=== PATIENT | female | born 1970 | race Caucasian/White ===

== ENCOUNTER 2018-08-29 04:40 | Observation (INO) ==
[2018-08-29] MEDS ORDERED: Sod Chloride 0.9% Inj 1,000 ML IV.SIG ONE (05:11)
[2018-08-29] MEDS ORDERED: HYDROmorphone PF Inj 2 MG/ML Vial IV.PUSH ONE (05:11)
[2018-08-29 05:33] LABS: Baso % (Auto) 0.2 % (0.0-2.0); Eos # (Auto) 0.1 th/mm3 (0.0-0.4); Eos % (Auto) 0.9 % (0.0-4.0); Hematocrit 35.9 % (35.0-46.0); Hemoglobin 12.5 gm/dL (11.6-15.3); Lymph # (Auto) 1.5 th/mm3 (1.0-4.8); Lymph % (Auto) 9.4 % (9.0-44.0); Mean Corpuscular HGB Conc 34.7 % (32.0-36.0); Mean Corpuscular Hemoglobin 32.1 pg (27.0-34.0); Mean Corpuscular Volume 92.4 fL (80.0-100.0); Mean Platelet Volume 7.4 fL (7.0-11.0); Mono # (Auto) 1.3 th/mm3 (0.0-0.9); Mono % (Auto) 8.4 % (0.0-8.0); Neut # (Auto) 12.5 th/mm3 (1.8-7.7); Neut % (Auto) 81.1 % (16.0-70.0); Platelet Count 280 th/mm3 (150-450); Red Blood Count 3.89 mil/mm3 (4.00-5.30); Red Cell Distribution Width 12.8 % (11.6-17.2); White Blood Count 15.4 th/mm3 (4.0-11.0)
[2018-08-29 05:43] LABS: Alanine Aminotransferase 17 U/L (10-53); Albumin 3.1 g/dL (3.4-5.0); Anion Gap 6 meq/L (5-15); Aspartate Aminotransferase 15 U/L (15-37); Blood Urea Nitrogen 11 mg/dL (7-18); Calcium 8.3 mg/dL (8.5-10.1); Carbon Dioxide 26.7 meq/L (21.0-32.0); Chloride 107 meq/L (98-107); Glomerular Filtration Rate 68 mL/min (>89); Glucose,Random 146 mg/dL (74-106); Lipase 131 U/L (73-393); Magnesium 2.2 mg/dL (1.5-2.5); Potassium 3.7 meq/L (3.5-5.1); Sodium 140 meq/L (136-145)
[2018-08-29 05:45] LABS: Alkaline Phosphatase 56 U/L (45-117); Total Protein 7.3 g/dL (6.4-8.2)
--- NOTE | 2018-08-29 06:01 | ED ---
HPI General Chief Complaint: Abdominal Pain Stated Complaint: Abd Pain Time Seen by Provider: 08/29/18 04:58 Source: patient Mode of arrival: ambulatory Limitations: no limitations History of Present Illness HPI narrative: 48 yo F c/o RUQ pain for about 5 days much worse over the past two days. Vomiting occurred overnight. No fever chills. Pt unable to sleep due to pain. Pt seen yesterday at [facility] with essentially unremarkable work up including CT ab/pel and CBC/CMP. Pain constant. + Radiation to back. Timing constant. Related Data Home Medications Medication Instructions Recorded Confirmed venlafaxine [Effexor XR] 75 mg PO DAILY 08/28/18 08/29/18 zolpidem [Ambien] 10 mg PO HS 08/28/18 08/29/18 Allergies Allergy/AdvReac Type Severity Reaction Status Date / Time No Known Allergies Allergy Verified 08/29/18 04:45 Review of Systems ROS: all other systems reviewed are negative [facility] Medical History Medical History Anxiety (Acute) Fibromyalgia (Acute) Surgical History Surgical History H/O section (Acute) Social History Social History Substance History: No History of Abuse Second Hand Smoke Exposure: No Smoking Status: Never smoker How Often Do You Have a Drink Containing Alcohol: Monthly or less Recent Travel in [facility] within the Last 8 Weeks: No Recent Out of Country Travel within the Last 8 Weeks: No Immunization History Tetanus Immunization: Unsure Exam Narrative Exam Narrative: GENERAL: 48 yo F, WNWD, mild distress 2/2 pain SKIN: Focused skin assessment warm/dry. HEAD: Atraumatic. Normocephalic. EYES: Pupils equal and round. No scleral icterus. No injection or drainage. ENT: No nasal bleeding or discharge. Mucous membranes pink and moist. NECK: Trachea midline. No JVD. CARDIOVASCULAR: Regular rate and rhythm. No murmur appreciated. RESPIRATORY: No accessory muscle use. Clear to auscultation. Breath sounds equal bilaterally. GASTROINTESTINAL: TTP RUQ. Diffuse guarding. MUSCULOSKELETAL: No obvious deformities. No clubbing. No cyanosis. No edema. NEUROLOGICAL: Awake and alert. No obvious cranial nerve deficits. Motor grossly within normal limits. Normal speech. PSYCHIATRIC: Appropriate mood and affect; insight and judgment normal. Course Initial Documented Vital Signs Temperature 97.9 F 08/29/18 04:43 Pulse Rate 80 08/29/18 04:43 Respiratory Rate 17 08/29/18 04:43 Blood Pressure 116/55 L 08/29/18 04:43 Pulse Oximetry 99 08/29/18 04:43 Last Documented Vital Signs Temperature 97.9 F 08/29/18 04:43 Pulse Rate 80 08/29/18 04:43 Respiratory Rate 16 08/29/18 06:13 Blood Pressure 116/55 L 08/29/18 04:43 Pulse Oximetry 99 08/29/18 05:30 Medical Decision Making MDM Narrative Medical decision making narrative: WBC 15.4 Hb 12.5 PLT 280 LFT essentially normal US with GBW thickening and GB distension cipro/flagyl started IVF/NPO Call to [facility] hospitalist at 626AM. d/w Dr Mejia at 630AM, admission to Dr Retana Medical Screen Exam Complete: Yes Emergency Medical Condition: Yes Lab Data Result diagrams: 08/29/18 05:14 08/29/18 05:14 Lab Results 08/29/18 08/29/18 Range/Units 05:14 05:14 WBC 15.4 H (4.0-11.0) th/mm3 RBC 3.89 L (4.00-5.30) mil/mm3 Hgb 12.5 (11.6-15.3) gm/dL Hct 35.9 (35.0-46.0) % MCV 92.4 (80.0-100.0) fL MCH 32.1 (27.0-34.0) pg MCHC 34.7 (32.0-36.0) % RDW 12.8 (11.6-17.2) % Plt Count 280 (150-450) th/mm3 MPV 7.4 (7.0-11.0) fL Neut % (Auto) 81.1 H (16.0-70.0) % Lymph % (Auto) 9.4 (9.0-44.0) % Rolette % (Auto) 8.4 H (0.0-8.0) % Eos % (Auto) 0.9 (0.0-4.0) % Baso % (Auto) 0.2 (0.0-2.0) % Neut # (Auto) 12.5 H (1.8-7.7) th/mm3 Lymph # (Auto) 1.5 (1.0-4.8) th/mm3 Rolette # (Auto) 1.3 H (0.0-0.9) th/mm3 Eos # (Auto) 0.1 (0.0-0.4) th/mm3 Baso # (Auto) 0.0 (0.0-0.2) th/mm3 WBC Differential . Differential Comment Auto diff final Sodium 140 (136-145) meq/L Potassium 3.7 (3.5-5.1) meq/L Chloride 107 (98-107) meq/L Carbon Dioxide 26.7 (21.0-32.0) meq/L Anion Gap 6 (5-15) meq/L BUN 11 (7-18) mg/dL Creatinine 0.89 (0.50-1.00) mg/dL Estimated GFR 68 L (>89) mL/min Random Glucose 146 H (74-106) mg/dL Calcium 8.3 L (8.5-10.1) mg/dL Magnesium 2.2 (1.5-2.5) mg/dL Total Bilirubin 0.6 (0.2-1.0) mg/dL AST 15 (15-37) U/L ALT 17 (10-53) U/L Alkaline Phosphatase 56 (45-117) U/L Total Protein 7.3 (6.4-8.2) g/dL Albumin 3.1 L (3.4-5.0) g/dL Lipase 131 (73-393) U/L Imaging Data Radiologist's impression: Gallbladder Ultrasound 08/29/18 05:06 CONCLUSION: 1. Small hemangioma right lobe liver. 2. Distended gallbladder with some gallbladder wall thickening but no sonographic Crane's sign Discharge Plan Discharge Disposition Patient Disposition: ED Admit(ED Internal Use Only) Discharge Order Discharge Orders: ED Use Only Admit Order (Routine); Ordered 08/29/18 Ordered By: Remy Clarke Physicians Team ED Provider: Remy Clarke Primary Care Provider: Nell Romero Attending Provider: Anjel Muñoz Other Providers: Nemesio Escamilla Status ED Status: Admitted Patient
--- NOTE | 2018-08-29 06:12 | US ---
EXAM DATE: 08/29/2018 5:49 AM EST AGE/SEX: 48 years / Female INDICATIONS: RUQ pain. CLINICAL DATA: This is the patient's initial encounter. Patient reports that signs and symptoms have been present for 1 day and indicates a pain score of 7/10. MEDICAL/SURGICAL HISTORY: . Anxiety. Fibromyalgia. section. COMPARISON: [facility], CT ABDOMEN & PELVIS W CONTRAST, 08/28/2018. . MEASUREMENTS: Liver:__ 16.3 cm. Common Bile Duct:__ Nonvisualized. FINDINGS: Liver: Well-circumscribed echogenic area in the right lobe of liver I believe a hemangioma measuring 7 x 8 x 8 mm across. Portal Vein: Hepatopedal flow seen in portal vein. Common Duct: No intraluminal mass or stone visualized. Gallbladder: The gallbladder wall is thickened between 3 to 4 mm the patient did not have a positive sonographic Crane's sign Pancreas: The visualized portions are within normal limits Right Kidney: Increased echogenicity. No mass or hydronephrosis. Other: None. CONCLUSION: 1. Small hemangioma right lobe liver. 2. Distended gallbladder with some gallbladder wall thickening but no sonographic Crane's sign Electronically signed by: Jani Mott MD Board Certified Radiologist 08/29/2018 6:11 AM EST
[2018-08-29] MEDS ORDERED: Ciprofloxacin 400 MG/200 ML 400 MG/200 ML PIGGYBACK IV.SIG ONE (06:31)
[2018-08-29] MEDS: Morphine Inj 4 MG/ML Vial IV.PUSH PRN ×2 (08:43→11:57)
--- NOTE | 2018-08-29 08:47 | MR ---
EXAM DATE: 08/29/2018 7:58 AM EST AGE/SEX: 48 years / Female INDICATIONS: Abdominal pain. RUQ pain. CLINICAL DATA: This is the patient's initial encounter. Patient reports that signs and symptoms have been present for 1 day and indicates a pain score of 2/10. MEDICAL/SURGICAL HISTORY: None. section. COMPARISON: [facility], CT ABDOMEN & PELVIS W CONTRAST, 08/28/2018. [facility], CT ABDOMEN AND PELVIS W AND W /O CONTRAST, 02/09/2018. . TECHNIQUE: Multiplanar, multisequence images of the abdomen were obtained without contrast including dedicated cholangiographic images. FINDINGS: Liver: 1.3 cm mass seen at the superior aspect of the right lobe of the liver. This is nonspecific o n this MRCP however, has been present on the last 2 CT examinations. On the prior contrast enhanced C T there appear to be some peripheral rim enhancement suggesting it likely represents a small hemangio ma. Intrahepatic Bile Ducts: There is no intrahepatic biliary ductal dilatation. Common Bile Duct: The common bile duct is mildly distended at 7 mm. There appears to be a possible s mall 3 to 4 mm filling defect at the distal common bile duct at the level of the ampulla. A small sto ne can be suspected. Gallbladder: Gallbladder is distended. Gallstones are not seen. The gallbladder wall is thickened. Pancreas: The pancreas appears normal in signal with no focal parenchymal abnormalities. The pancrea tic duct is normal in caliber with no filling defects, or obstructing lesions identified. CONCLUSION: 1. Suspected small filling defect at the distal common bile duct recent possibility of a distal ston e with mild dilatation the common bile duct and distention of the gallbladder. 2. Nonspecific 1.3 cm hypodensity in the superior aspect of the right lobe of the liver. Based on it s appearance on the prior CT examinations is thought the likely represent a hemangioma. Electronically signed by: Tristen Higginbotham MD Board Certified Radiologist 08/29/2018 8:46 AM EST
--- NOTE | 2018-08-29 10:54 | P.CONGI ---
History of Present Illness Chief complaint: poss Cholecystitis History of Present Illness: This is 48 yo F presented with RUQ pain started since Fri. progressively got worse. Had one episode of Vomiting. No fever chills. Pt seen yesterday at [facility] with essentially unremarkable work up including CT ab/pel and CBC/CMP. Pain persisted so she presented to the ED again. Cholangiopancreatography MRI showed Suspected small filling defect at the distal common bile duct recent possibility of a distal stone with mild dilatation the common bile duct and distention of the gallbladder. Nonspecific 1.3 cm hypodensity in the superior aspect of the right lobe of the liver. Based on its appearance on the prior CT examinations is thought the likely represent a hemangioma. Gallbladder Ultrasound 08/29/18 Small hemangioma right lobe liver. Distended gallbladder with some gallbladder wall thickening but no sonographic Crane's sign. LFTs wnl , lipase wnl, elevated WBC. Denies previous hx of this. <Radha Schulz - Last Filed: 08/29/18 11:51> Review of Systems All other systems reviewed negative except as stated in HPI <Radha Schulz - Last Filed: 08/29/18 11:51> PMFSH - History History Provided By: Patient - Medical History Medical History: Medical History (Last Reviewed 08/29/18 @ 04:44 by Cecil De Souza) Anxiety Fibromyalgia - Surgical History Surgical History: Surgical History (Last Updated 08/29/18 @ 04:49 by Cristina Couch RN) H/O section - Tobacco History Second Hand Smoke Exposure: No Smoking Status: Never smoker - Alcohol History How Often Do You Have a Drink Containing Alcohol: 2 to 3 times a week - Substance Use History Substance History: No History of Abuse - Travel History Recent Travel in the [place] Within the Last 8 Weeks: No Recent Travel Out of the Country Within the Last 8 Weeks: No - Immunization History Tetanus Immunization: Unsure <Radha Schulz - Last Filed: 08/29/18 11:51> - Medical History Medical History: Medical History (Last Reviewed 08/29/18 @ 04:44 by Cecil De Souza) Anxiety Fibromyalgia - Surgical History Surgical History: Surgical History (Last Updated 08/29/18 @ 04:49 by Cristina Couch RN) H/O section <Nemesio Escamilla - Last Filed: 08/29/18 16:08> Medications and Allergies Active Medications: Active Medications Levofloxacin/Dextrose (Levaquin 750 Mg Premix Inj) 150 mls @ 100 mls/hr IV.SIG Q36H JOAN Metronidazole/Sodium Chloride (Flagyl 500 Mg Inj) 100 mls @ 100 mls/hr IV.SIG Q8H JOAN Morphine Sulfate (Morphine Inj) 4 mg IV.PUSH Q3H PRN PRN Reason: pain level 3-10 Last Admin: 08/29/18 08:43 Dose: 4 mg Ondansetron HCl (Zofran Inj) 4 mg IV.PUSH Q6H PRN PRN Reason: nausea, vomiting Sodium Chloride (Ns Flush) 2 ml IV.FLUSH PRN PRN PRN Reason: FLUSH AFTER USING IV ACCESS Last Admin: 08/29/18 05:30 Dose: 2 ml <Radha Schulz - Last Filed: 08/29/18 11:51> Active Medications: Active Medications Dextrose (D50w Vial) 50 ml IV.PUSH UNSCH PRN PRN Reason: PER HYPOGLYCEMIA PROTOCOL Glucagon (Glucagon Inj) 1 mg OTHER PRN PRN PRN Reason: for Hypoglycemia Protocol Metronidazole/Sodium Chloride (Flagyl 500 Mg Inj) 100 mls @ 100 mls/hr IV.SIG Q8H JOAN Last Admin: 08/29/18 14:19 Dose: 100 mls/hr Levofloxacin/Dextrose (Levaquin 500 Mg Premix Inj) 500 mg in 100 mls @ 100 mls/ hr IV.SIG Q24H [facility] Last Admin: 08/29/18 14:19 Dose: 100 mls/hr Potassium Chloride/Sodium Chloride (Ns + Kcl 20 Meq Inj) 1,000 mls @ 75 mls/hr IV.CONT .[id number] [facility] Last Admin: 08/29/18 14:19 Dose: 75 mls/hr Lorazepam (Ativan Inj) 1 mg IV.PUSH Q6H PRN PRN Reason: ANXIETY Morphine Sulfate (Morphine Inj) 4 mg IV.PUSH Q3H PRN PRN Reason: pain level 3-10 Last Admin: 08/29/18 11:57 Dose: 4 mg Ondansetron HCl (Zofran Inj) 4 mg IV.PUSH Q6H PRN PRN Reason: nausea, vomiting Sodium Chloride (Ns Flush) 2 ml IV.FLUSH PRN PRN PRN Reason: FLUSH AFTER USING IV ACCESS Last Admin: 08/29/18 05:30 Dose: 2 ml Venlafaxine HCl (Effexor Xr) 75 mg PO DAILY JOAN Zolpidem Tartrate (Ambien) 5 mg PO HS PRN PRN Reason: INSOMNIA/MAY REPEAT X1 DOSE <Nemesio Escamilla - Last Filed: 08/29/18 16:08> Allergies Allergy/AdvReac Type Severity Reaction Status Date / Time No Known Allergies Allergy Verified 08/29/18 04:45 Home Medications Medication Instructions Recorded Confirmed Type venlafaxine [Effexor XR] 75 mg PO DAILY 08/28/18 08/29/18 History zolpidem [Ambien] 10 mg PO HS 08/28/18 08/29/18 History Exam Vital signs: Vital Signs 08/29/18 04:43 08/29/18 05:30 08/29/18 06:13 Temperature 97.9 F Pulse Rate 80 Respiratory Rate 17 16 Blood Pressure 116/55 L Pulse Oximetry 99 99 08/29/18 07:14 08/29/18 08:00 Temperature 98.4 F Pulse Rate 86 82 Respiratory Rate 14 18 Blood Pressure 108/58 L 119/58 L Pulse Oximetry 98 100 Intake & Output 08/28/18 08/29/18 08/29/18 18:59 06:59 18:59 Intake Total 1000 / 1000 100 / 100 Balance 1000 / 1000 100 / 100 Weight 51.71 kg 51.7 kg Intake: IV 1000 / 1000 100 / 100 NS Inj 1,000 ML @ Wide Open IV. 1000 / 1000 SIG BOLUS ONE Rx#:[id number] Flagyl 500 MG Inj 100 ML @ 100 100 / 100 mls/hr IV.SIG ONCE ONE Rx#: [id number] Other: Weight On Admission 51.7 kg - Constitutional no acute distress - Routine HEENT Exam Head: Present: normocephalic - Routine Respiratory Exam Present: CTA bilaterally - Routine Cardiovascular Exam Present: RRR - Routine Abdominal Exam Present: soft, normoactive bowel sounds, tenderness (RUQ ) - Routine Extremities Exam Absent: edema - Routine Skin Exam Present: intact, dry. Absent: jaundice - Routine Neurological Exam Present: alert, oriented X3 <Radha Schulz - Last Filed: 08/29/18 11:51> Vital signs: Vital Signs 08/29/18 04:43 08/29/18 05:30 08/29/18 06:13 Temperature 97.9 F Pulse Rate 80 Respiratory Rate 17 16 Blood Pressure 116/55 L Pulse Oximetry 99 99 08/29/18 07:14 08/29/18 08:00 08/29/18 12:00 Temperature 98.4 F 99.1 F Pulse Rate 86 82 90 Respiratory Rate 14 18 18 Blood Pressure 108/58 L 119/58 L 126/71 Pulse Oximetry 98 100 100 Intake & Output 08/28/18 08/29/18 08/29/18 18:59 06:59 18:59 Intake Total 1000 / 1000 100 / 100 Balance 1000 / 1000 100 / 100 Weight 51.71 kg 51.7 kg Intake: IV 1000 / 1000 100 / 100 NS Inj 1,000 ML @ Wide Open IV. 1000 / 1000 SIG BOLUS ONE Rx#:[id number] Flagyl 500 MG Inj 100 ML @ 100 100 / 100 mls/hr IV.SIG ONCE ONE Rx#: [id number] Other: Weight On Admission 51.7 kg <Nemesio Escamilla - Last Filed: 08/29/18 16:08> Results - Labs CBC & Chem 7: 08/29/18 05:14 08/29/18 05:14 Labs: Laboratory Results - last 24 hr 08/29/18 08/29/18 08/29/18 05:14 05:14 05:14 WBC 15.4 H RBC 3.89 L Hgb 12.5 Hct 35.9 MCV 92.4 MCH 32.1 MCHC 34.7 RDW 12.8 Plt Count 280 MPV 7.4 Neut % (Auto) 81.1 H Lymph % (Auto) 9.4 Maries % (Auto) 8.4 H Eos % (Auto) 0.9 Baso % (Auto) 0.2 Neut # (Auto) 12.5 H Lymph # (Auto) 1.5 Maries # (Auto) 1.3 H Eos # (Auto) 0.1 Baso # (Auto) 0.0 WBC Differential . Differential Comment Auto diff final Sodium 140 Potassium 3.7 Chloride 107 Carbon Dioxide 26.7 Anion Gap 6 BUN 11 Creatinine 0.89 Estimated GFR 68 L Random Glucose 146 H Calcium 8.3 L Magnesium 2.2 Total Bilirubin 0.6 AST 15 ALT 17 Alkaline Phosphatase 56 Total Protein 7.3 Albumin 3.1 L Lipase 131 Beta HCG, Quant Less than 1 - Imaging Impressions Cholangiopancreatography MRI 08/29/18 00:00 CONCLUSION: 1. Suspected small filling defect at the distal common bile duct recent possibility of a distal stone with mild dilatation the common bile duct and distention of the gallbladder. 2. Nonspecific 1.3 cm hypodensity in the superior aspect of the right lobe of the liver. Based on its appearance on the prior CT examinations is thought the likely represent a hemangioma. Gallbladder Ultrasound 08/29/18 05:06 CONCLUSION: 1. Small hemangioma right lobe liver. 2. Distended gallbladder with some gallbladder wall thickening but no sonographic Crane's sign <Radha Schulz - Last Filed: 08/29/18 11:51> - Labs CBC & Chem 7: 08/29/18 05:14 08/29/18 05:14 Labs: Laboratory Results - last 24 hr 08/29/18 08/29/18 08/29/18 05:14 05:14 05:14 WBC 15.4 H RBC 3.89 L Hgb 12.5 Hct 35.9 MCV 92.4 MCH 32.1 MCHC 34.7 RDW 12.8 Plt Count 280 MPV 7.4 Neut % (Auto) 81.1 H Lymph % (Auto) 9.4 Maries % (Auto) 8.4 H Eos % (Auto) 0.9 Baso % (Auto) 0.2 Neut # (Auto) 12.5 H Lymph # (Auto) 1.5 Maries # (Auto) 1.3 H Eos # (Auto) 0.1 Baso # (Auto) 0.0 WBC Differential . Differential Comment Auto diff final Sodium 140 Potassium 3.7 Chloride 107 Carbon Dioxide 26.7 Anion Gap 6 BUN 11 Creatinine 0.89 Estimated GFR 68 L Random Glucose 146 H Calcium 8.3 L Magnesium 2.2 Total Bilirubin 0.6 AST 15 ALT 17 Alkaline Phosphatase 56 Total Protein 7.3 Albumin 3.1 L Lipase 131 Beta HCG, Quant Less than 1 - Imaging Impressions Cholangiopancreatography MRI 08/29/18 00:00 CONCLUSION: 1. Suspected small filling defect at the distal common bile duct recent possibility of a distal stone with mild dilatation the common bile duct and distention of the gallbladder. 2. Nonspecific 1.3 cm hypodensity in the superior aspect of the right lobe of the liver. Based on its appearance on the prior CT examinations is thought the likely represent a hemangioma. Gallbladder Ultrasound 08/29/18 05:06 CONCLUSION: 1. Small hemangioma right lobe liver. 2. Distended gallbladder with some gallbladder wall thickening but no sonographic Crane's sign <Nemesio Escamilla - Last Filed: 08/29/18 16:08> Assessment and Plan - Plan - Choledocholithiasis- MRI 08/29/18 showed Suspected small filling defect at the distal common bile duct recent possibility of a distal stone with mild dilatation the common bile duct and distention of the gallbladder. Nonspecific 1.3 cm hypodensity in the superior aspect of the right lobe of the liver. Based on its appearance on the prior CT examinations is thought the likely represent a hemangioma. Gallbladder Ultrasound 08/29/18 Small hemangioma right lobe liver. Distended gallbladder with some gallbladder wall thickening but no sonographic Crane's sign. LFTs wnl, lipase wnl, elevated WBC. Denies previous hx of this. Plan: - NPO - ERCP today - Consult surgery for possible cholecystectomy - Monitor labs - Further recommendations to follow pending results above - Pt seen and examined by Dr. Escamilla and myself and this note is written on his behalf. <Radha Schulz - Last Filed: 08/29/18 11:51> - Attending Attestation I have seen and examined the patient. I agree with the assessment and plan as above. <Nemesio Escamilla - Last Filed: 08/29/18 16:08>
--- NOTE | 2018-08-29 11:21 | P.HPIM ---
History of Present Illness Primary Care Physician: Nell Romero MD Chief Complaint: Right upper quadrant pain since Friday History of Present Illness: This a 48-year-old female patient with a past medical history which includes anxiety, fibromyalgia. Patient initially presented tot [facility] 08/28 with right upper quadrant epigastric pain radiating into her chest. RUQ pain associated with some mild nausea but no vomiting no sweats no shortness of breath no neck jaw back shoulder arm pain. Patient continues to have RUQ pain and presented to [facility] main ER today. Patient denies fevers, chills, SOB or chest pain. PMH: anxiety, fibromyalgia PSxH: section Social history: Occasional EtOH use Denies tobacco use now or in the past Denies illicit drug use FMH: No family history of cardiac disease father with hypertension Medications and Allergies Allergies Allergy/AdvReac Type Severity Reaction Status Date / Time No Known Allergies Allergy Verified 08/29/18 04:45 Home Medications Medication Instructions Recorded Confirmed Type venlafaxine [Effexor XR] 75 mg PO DAILY 08/28/18 08/29/18 History zolpidem [Ambien] 10 mg PO HS 08/28/18 08/29/18 History Active Medications: Active Medications Levofloxacin/Dextrose (Levaquin 750 Mg Premix Inj) 150 mls @ 100 mls/hr IV.SIG Q36H JOAN Metronidazole/Sodium Chloride (Flagyl 500 Mg Inj) 100 mls @ 100 mls/hr IV.SIG Q8H JOAN Morphine Sulfate (Morphine Inj) 4 mg IV.PUSH Q3H PRN PRN Reason: pain level 3-10 Last Admin: 08/29/18 08:43 Dose: 4 mg Ondansetron HCl (Zofran Inj) 4 mg IV.PUSH Q6H PRN PRN Reason: nausea, vomiting Sodium Chloride (Ns Flush) 2 ml IV.FLUSH PRN PRN PRN Reason: FLUSH AFTER USING IV ACCESS Last Admin: 08/29/18 05:30 Dose: 2 ml Physical Exam Vital signs: Last Vital Signs Temp 98.4 F 08/29/18 08:00 Pulse 82 08/29/18 08:00 Resp 18 08/29/18 08:00 BP 119/58 L 08/29/18 08:00 Pulse Ox 100 08/29/18 08:00 Narrative: GENERAL: This is a well-nourished, well-developed patient, in no apparent distress. CARDIOVASCULAR: Regular rate and rhythm without murmurs, gallops, or rubs. RESPIRATORY: Clear to auscultation. Breath sounds equal bilaterally. No wheezes , rales, or rhonchi. GASTROINTESTINAL: Abdomen soft, tender RUQ, nondistended. Normal active bowel sounds MUSCULOSKELETAL: Extremities without clubbing, cyanosis, or edema. NEURO: Alert & Oriented x4 to person, place, time, situation. Moves all ext x4 Results Labs CBC & Chem 7: 08/29/18 05:14 08/29/18 05:14 Caprini VTE Risk Assessment Caprini VTE Risk Assessment: No/Low Risk (score <= 1) Caprini Risk Assessment Model: Point Value = 1 Point Value = 2 Point Value = 3 Point Value = 5 Age 41-60 Minor surgery BMI > 25 kg/m2 Swollen legs Varicose veins or History of unexplained or recurrent spontaneous Oral contraceptives or hormone replacement Sepsis (< 1 month) Serious lung disease, including pneumonia (< 1 month) Abnormal pulmonary function Acute myocardial infarction Congestive heart failure (< 1 month) History of inflammatory bowel disease Medical patient at bed rest Age 61-74 Arthroscopic surgery Major open surgery (> 45 min) Laparoscopic surgery (> 45 min) Malignancy Confined to bed (> 72 hours) Immobilizing plaster cast Central venous access Age >= 75 History of VTE Family history of VTE Factor V Leiden Prothrombin [id number] Lupus anticoagulant Anticardiolipin antibodies Elevated serum homocysteine Heparin-induced thrombocytopenia Other congenital or acquired thrombophilia Stroke (< 1 month) Elective arthroplasty Hip, pelvis, or leg fracture Acute spinal cord injury (< 1 month) Prophylaxis Regimen: Total Risk Factor Score Risk Level Prophylaxis Regimen 0-1 Low Early ambulation 2 Moderate Order ONE of the following: *Sequential Compression Device (SCD) *Heparin 5000 units SQ BID 3-4 Higher Order ONE of the following medications: *Heparin 5000 units SQ TID *Enoxaparin/Lovenox 40 mg SQ daily (WT < 150 kg, CrCl > 30 mL/min) *Enoxaparin/Lovenox 30 mg SQ daily (WT < 150 kg, CrCl > 10-29 mL/min) *Enoxaparin/Lovenox 30 mg SQ BID (WT < 150 kg, CrCl > 30 mL/min) AND/OR *Sequential Compression Device (SCD) 5 or more Highest Order ONE of the following medications: *Heparin 5000 units SQ TID (Preferred with Epidurals) *Enoxaparin/Lovenox 40 mg SQ daily (WT < 150 kg, CrCl > 30 mL/min) *Enoxaparin/Lovenox 30 mg SQ daily (WT < 150 kg, CrCl > 10-29 mL/min) *Enoxaparin/Lovenox 30 mg SQ BID (WT < 150 kg, CrCl > 30 mL/min) AND *Sequential Compression Device (SCD) Assessment and Plan Plan This a 48-year-old female patient with a past medical history which includes anxiety, fibromyalgia. Patient initially presented tot [facility] 08/28 with right upper quadrant epigastric pain radiating into her chest. RUQ pain associated with some mild nausea but no vomiting no sweats no shortness of breath no neck jaw back shoulder arm pain. Patient continues to have RUQ pain and presented to [facility] main ER. Choledocholithiasis Cholangiopancreatography MRI 08/29/18 1. Suspected small filling defect at the distal common bile duct recent possibility of a distal stone with mild dilatation the common bile duct and distention of the gallbladder. 2. Nonspecific 1.3 cm hypodensity in the superior aspect of the right lobe of the liver. Based on its appearance on the prior CT examinations is thought the likely represent a hemangioma. Gallbladder Ultrasound 08/29/18 1. Small hemangioma right lobe liver. 2. Distended gallbladder with some gallbladder wall thickening but no sonographic Crane's sign CT abd/pel with IV contrast 08/28/[address] Abdomen and Pelvis with contrast. I don't clearly see the appendix but I don't see any inflammation in the right lower quadrant WBC (08/28) 7.9 -> 15.4 (08/29) Continue Levaquin and Flagyl total bilirubin 0.6, AST 15, ALT 17, Alk Phos 56 GI consulted and plan for ERCP today General surgery consult Anxiety Continue home Effexor Fibromyalgia chronic DVT prophylaxis with SCDs Attending Attestation The exam, history, and the medical decision-making described in the above note were completed with the assistance of the mid-level provider. I reviewed and agree with the findings presented. I attest that I had a [id number] encounter with the patient on the same day, and personally performed and documented my assessment and findings in the medical record. Patient examined. Assessment and plan formulated with Leah Kincaid PA-C. I agree with the above. On PE, pt with marked tenderness on palpation of RUQ. Await results of ERCP continue levaquin & flagyl repeat CMP/CBC in AM H&P: Quality VTE Deep Vein Thrombosis/Pulmonary Embolism Present on Admission: No
[2018-08-29] MEDS ORDERED: Dextrose 50% in Water 50 ML Vial IV.PUSH PRN (13:00)
[2018-08-29] MEDS: Levofloxacin 500 mg Premix Inj 500 MG/100 ML PIGGYBACK IV.SIG SCH (14:19)
[2018-08-29] MEDS ORDERED: Zolpidem Tartrate 5 MG Tablet PO PRN (15:50)
--- NOTE | 2018-08-29 17:37 | P.PCN ---
Date of procedure: 08/29/18 Pre-op diagnosis: Choledocholithiasis with RUQ pain Post-op diagnosis: other (choledocholithiasis) Procedure: INDICATION: Choledocholithiasis on MRCP with right upper quadrant pain PROCEDURE PERFORMED: ERCP with sphincterotomy and balloon extraction of common bile duct stone After informing the patient about procedure and possible complications consent was signed. history and physical were updated. Patient was taken to the procedure room and placed in position. Time out was completed. ANESTHESIA: Adequate sedation was performed by anesthesia provider. PROCEDURE: The sideviewing ERCP scope was placed in the mouth advanced under video guide to the second portion of the duodenum, the ampulla was identified , cholangiogram was performed after cannulation of the common bile duct with a wire, injections of the pancreatic duct was not performed, then the scope was withdrawal to the stomach and retro-flexion was performed, the scope was withdrawal to the esophagus then out of the mouth without any immediate complication. FINDINGS: Esophagus: Normal Stomach normal Duodenum the ampulla was identified within a diverticulum otherwise normal mucosa Ampula seen within a diverticulum CBD the duct appeared to be about 8 mm in diameter. A filling defect in the distal duct was identified at about 5 mm. This was consistent with the known history of choledocholithiasis pancreatic duct not injected therapy with the guidewire in place to stabilize the sphincterotome a sphincterotomy was performed. There was good hemostasis. Leaving the guidewire and placed the sphincterotome was exchanged out for the 8 mm balloon. The balloon was advanced up to just below the level of the bifurcation. Contrast was injected. As the contrast was injected the balloon was pulled back. The stone could be seen to come through the sphincterotomy. The balloon was removed. Post extraction cholangiogram showed no filling defect in the bile duct. IMPRESSION:. Choledocholithiasis with obstruction of the bile duct RECOMMENDATIONS: 1-n.p.o. for 6 hours, if no pain, advanced to clear liquid 2-okay to transfer to recovery area then discharged per protocol 3-patient can be observed overnight. If she is doing well in the morning she will be discharged home. Consideration for surgical consultation for laparoscopic cholecystectomy. Anesthesia: MAC Surgeon: Nemesio Escamilla Biotechnologist: Artis Ohara Pathology: none sent Condition: stable Disposition: floor
[2018-08-29] MEDS ORDERED: fentaNYL Citrate Inj 100 MCG/2 ML Ampul ONE (17:55)
--- NOTE | 2018-08-29 18:04 | FL ---
EXAM DATE: 08/29/2018 5:58 PM EST AGE/SEX: 48 years / Female INDICATIONS: Obstruction,stone removal. CLINICAL DATA: This is the patient's initial encounter. Patient reports that signs and symptoms have been present for 1 day and indicates a pain score of Nonresponsive. MEDICAL/SURGICAL HISTORY: . Anxiety. Fibromyalgia. section. . COMPARISON: [facility], CT ABDOMEN & PELVIS W CONTRAST, 08/28/2018. . FLUORO TIME: 1:15 IMAGE COUNT: 5 RADIATION DOSE: .[id number] DAP FINDINGS: An ERCP was performed by the ordering physician. The images demonstrate opacification of the extrahe patic and central intrahepatic biliary system. A balloon was passed through the extrahepatic system. No residual filling defect is noted within the extrahepatic system on the final film. CONCLUSION: No definite filling defect identified within the extrahepatic biliary system after balloon was passed through the system. Electronically signed by: Buddy Dolan MD Board Certified Radiologist 08/29/2018 6:02 PM EST
[2018-08-30] MEDS: Venlafaxine XR 75 MG Capsule PO SCH (08:50)
[2018-08-30 09:39] LABS: Baso % (Auto) 0.2 % (0.0-2.0); Eos % (Auto) 0.2 % (0.0-4.0); Hematocrit 34.2 % (35.0-46.0); Lymph # (Auto) 1.3 th/mm3 (1.0-4.8); Lymph % (Auto) 7.9 % (9.0-44.0); Mean Corpuscular HGB Conc 35.2 % (32.0-36.0); Mean Corpuscular Hemoglobin 32.5 pg (27.0-34.0); Mean Corpuscular Volume 92.4 fL (80.0-100.0); Mean Platelet Volume 7.5 fL (7.0-11.0); Mono # (Auto) 1.1 th/mm3 (0.0-0.9); Mono % (Auto) 6.8 % (0.0-8.0); Neut # (Auto) 13.5 th/mm3 (1.8-7.7); Neut % (Auto) 84.9 % (16.0-70.0); Platelet Count 256 th/mm3 (150-450); Red Blood Count 3.71 mil/mm3 (4.00-5.30); Red Cell Distribution Width 12.7 % (11.6-17.2); White Blood Count 15.9 th/mm3 (4.0-11.0)
[2018-08-30 10:06] LABS: Albumin 2.7 g/dL (3.4-5.0); Anion Gap 9 meq/L (5-15); Aspartate Aminotransferase 17 U/L (15-37); Blood Urea Nitrogen 4 mg/dL (7-18); Calcium 8.2 mg/dL (8.5-10.1); Carbon Dioxide 25.1 meq/L (21.0-32.0); Chloride 105 meq/L (98-107); Glomerular Filtration Rate 80 mL/min (>89); Glucose,Random 102 mg/dL (74-106); Potassium 3.8 meq/L (3.5-5.1); Sodium 139 meq/L (136-145)
[2018-08-30 10:10] LABS: Alanine Aminotransferase 21 U/L (10-53); Alkaline Phosphatase 74 U/L (45-117)
--- NOTE | 2018-08-30 12:17 | P.PNGI ---
Subjective Interval history: Pt is resting in bed, doing much better today, tolerating diet ok, anxious to go home, hasn't been seen by GS yet. <Radha Schulz - Last Filed: 08/30/18 12:11> Physical Exam Vital signs: Vital Signs 08/29/18 16:00 08/29/18 20:49 08/30/18 00:15 Temperature 100.3 F H 99.8 F H 100.7 F H Pulse Rate 106 H 96 H 95 H Respiratory Rate 18 18 18 Blood Pressure 118/72 99/53 L 112/56 L Pulse Oximetry 100 98 99 08/30/18 04:56 08/30/18 08:00 Temperature 100.2 F H 98.8 F Pulse Rate 98 H 90 Respiratory Rate 18 16 Blood Pressure 110/59 L 122/70 Pulse Oximetry 99 99 Intake & Output 08/29/18 08/30/18 08/30/18 18:59 06:59 18:59 Intake Total 700 / 700 1340 / 1340 100 / 100 Balance 700 / 700 1340 / 1340 100 / 100 Weight 51.7 kg 53.3 kg Intake: IV 300 / 300 1100 / 1100 100 / 100 NS + KCl 20 mEq Inj 1,000 ML @ 1000 / 1000 75 mls/hr IV.CONT .[id number] JOAN Rx#:[id number] Levaquin 500 mg Premix Inj 500 100 / 100 mg In 100 ml @ 100 mls/hr IV. SIG Q24H JOAN Rx#:[id number] Flagyl 500 MG Inj 100 ML @ 100 200 / 200 100 / 100 100 / 100 mls/hr IV.SIG Q8H JOAN Rx#: [id number] Oral 240 / 240 Anesthesia Amount 400 / 400 Other: # Voids 3 Date of Last Bowel Movement 08/28/18 # Bowel Movements 0 Weight On Admission 51.7 kg - Constitutional no acute distress - Routine HEENT Exam Head: Present: normocephalic - Routine Respiratory Exam Present: CTA bilaterally - Routine Cardiovascular Exam Present: RRR - Routine Abdominal Exam Present: soft, normoactive bowel sounds. Absent: tenderness, distended - Routine Skin Exam Present: intact, dry - Routine Neurological Exam Present: alert, oriented X3 - Routine Psychiatric Exam Present: normal affect, normal thought process <Radha Schulz - Last Filed: 08/30/18 12:11> Vital signs: Vital Signs 08/29/18 16:00 08/29/18 20:49 08/30/18 00:15 Temperature 100.3 F H 99.8 F H 100.7 F H Pulse Rate 106 H 96 H 95 H Respiratory Rate 18 18 18 Blood Pressure 118/72 99/53 L 112/56 L Pulse Oximetry 100 98 99 08/30/18 04:56 08/30/18 08:00 08/30/18 12:00 Temperature 100.2 F H 98.8 F 99 F Pulse Rate 98 H 90 94 H Respiratory Rate 18 16 16 Blood Pressure 110/59 L 122/70 99/53 L Pulse Oximetry 99 99 98 Intake & Output 08/29/18 08/30/18 08/30/18 18:59 06:59 18:59 Intake Total 700 / 700 1340 / 1340 100 / 100 Balance 700 / 700 1340 / 1340 100 / 100 Weight 51.7 kg 53.3 kg Intake: IV 300 / 300 1100 / 1100 100 / 100 NS + KCl 20 mEq Inj 1,000 ML @ 1000 / 1000 75 mls/hr IV.CONT .[id number] JOAN Rx#:[id number] Levaquin 500 mg Premix Inj 500 100 / 100 mg In 100 ml @ 100 mls/hr IV. SIG Q24H JOAN Rx#:[id number] Flagyl 500 MG Inj 100 ML @ 100 200 / 200 100 / 100 100 / 100 mls/hr IV.SIG Q8H JOAN Rx#: [id number] Oral 240 / 240 Anesthesia Amount 400 / 400 Other: # Voids 3 Date of Last Bowel Movement 08/28/18 # Bowel Movements 0 Weight On Admission 51.7 kg <Nemesio Escamilla - Last Filed: 08/30/18 14:05> Results - Labs CBC & Chem 7: 08/30/18 08:35 08/30/18 08:35 Laboratory Results - last 24 hr 08/29/18 08/29/18 08/30/18 16:04 19:51 08:35 WBC 15.9 H RBC 3.71 L Hgb 12.0 Hct 34.2 L MCV 92.4 MCH 32.5 MCHC 35.2 RDW 12.7 Plt Count 256 MPV 7.5 Neut % (Auto) 84.9 H Lymph % (Auto) 7.9 L [place] % (Auto) 6.8 Eos % (Auto) 0.2 Baso % (Auto) 0.2 Neut # (Auto) 13.5 H Lymph # (Auto) 1.3 [place] # (Auto) 1.1 H Eos # (Auto) 0.0 Baso # (Auto) 0.0 WBC Differential . Differential Comment Auto diff final Sodium Potassium Chloride Carbon Dioxide Anion Gap BUN Creatinine Estimated GFR POC Glucose 95 97 Random Glucose Calcium Total Bilirubin AST ALT Alkaline Phosphatase Total Protein Albumin 08/30/18 08:35 WBC RBC Hgb Hct MCV MCH MCHC RDW Plt Count MPV Neut % (Auto) Lymph % (Auto) [place] % (Auto) Eos % (Auto) Baso % (Auto) Neut # (Auto) Lymph # (Auto) [place] # (Auto) Eos # (Auto) Baso # (Auto) WBC Differential Differential Comment Sodium 139 Potassium 3.8 Chloride 105 Carbon Dioxide 25.1 Anion Gap 9 BUN 4 L Creatinine 0.78 Estimated GFR 80 L POC Glucose Random Glucose 102 Calcium 8.2 L Total Bilirubin 0.6 AST 17 ALT 21 Alkaline Phosphatase 74 Total Protein 7.0 Albumin 2.7 L - Imaging Impressions GI Procedure 08/29/18 00:00 CONCLUSION: No definite filling defect identified within the extrahepatic biliary system after balloon was passed through the system. <Radha Schulz - Last Filed: 08/30/18 12:11> - Labs CBC & Chem 7: 08/30/18 08:35 08/30/18 08:35 Laboratory Results - last 24 hr 08/29/18 08/29/18 08/30/18 16:04 19:51 08:35 WBC 15.9 H RBC 3.71 L Hgb 12.0 Hct 34.2 L MCV 92.4 MCH 32.5 MCHC 35.2 RDW 12.7 Plt Count 256 MPV 7.5 Neut % (Auto) 84.9 H Lymph % (Auto) 7.9 L [place] % (Auto) 6.8 Eos % (Auto) 0.2 Baso % (Auto) 0.2 Neut # (Auto) 13.5 H Lymph # (Auto) 1.3 [place] # (Auto) 1.1 H Eos # (Auto) 0.0 Baso # (Auto) 0.0 WBC Differential . Differential Comment Auto diff final Sodium Potassium Chloride Carbon Dioxide Anion Gap BUN Creatinine Estimated GFR POC Glucose 95 97 Random Glucose Calcium Total Bilirubin AST ALT Alkaline Phosphatase Total Protein Albumin 08/30/18 08:35 WBC RBC Hgb Hct MCV MCH MCHC RDW Plt Count MPV Neut % (Auto) Lymph % (Auto) [place] % (Auto) Eos % (Auto) Baso % (Auto) Neut # (Auto) Lymph # (Auto) [place] # (Auto) Eos # (Auto) Baso # (Auto) WBC Differential Differential Comment Sodium 139 Potassium 3.8 Chloride 105 Carbon Dioxide 25.1 Anion Gap 9 BUN 4 L Creatinine 0.78 Estimated GFR 80 L POC Glucose Random Glucose 102 Calcium 8.2 L Total Bilirubin 0.6 AST 17 ALT 21 Alkaline Phosphatase 74 Total Protein 7.0 Albumin 2.7 L - Imaging Impressions GI Procedure 08/29/18 00:00 CONCLUSION: No definite filling defect identified within the extrahepatic biliary system after balloon was passed through the system. <Nemesio Escamilla - Last Filed: 08/30/18 14:05> Assessment and Plan - Plan - Choledocholithiasis- S/P ERCP with sphincterotomy and balloon extraction of common bile duct stone on 08/29/18 MRI 08/29/18 showed Suspected small filling defect at the distal common bile duct recent possibility of a distal stone with mild dilatation the common bile duct and distention of the gallbladder. Nonspecific 1.3 cm hypodensity in the superior aspect of the right lobe of the liver. Based on its appearance on the prior CT examinations is thought the likely represent a hemangioma. Gallbladder Ultrasound 08/29/18 Small hemangioma right lobe liver. Distended gallbladder with some gallbladder wall thickening but no sonographic Crane's sign. LFTs wnl, lipase wnl, elevated WBC. Plan: - SOSA - Ok to d/c home from GI stand point - Surgery consults for possible cholecystectomy still pending - Monitor labs - GI will sign off - Pt seen and examined by Dr. Escamilla and myself and this note is written on his behalf. <Radha Schulz - Last Filed: 08/30/18 12:11> - Attending Attestation I have seen and examined the patient and reviewed the patients care with the [employer]ING [employer]IVING ENGINEER. I agree with the above assessment and recommendations as documented above. <Nemesio Escamilla - Last Filed: 08/30/18 14:05>
[2018-08-30] MEDS ORDERED: Acetaminophen 325 MG Tablet PO ONE (14:03)
[2018-08-30] MEDS ORDERED: Acetaminophen 325 MG Tablet PO PRN (14:05)
--- NOTE | 2018-08-30 14:08 | P.PNIM ---
Subjective Interval history: Pt c/o continued tenderness at LUQ. Pt tolerating PO intake without n/v/d. Physical Exam Vital signs: Last Vital Signs Temp 99 F 08/30/18 12:00 Pulse 94 H 08/30/18 12:00 Resp 16 08/30/18 12:00 BP 99/53 L 08/30/18 12:00 Pulse Ox 98 08/30/18 12:00 Narrative: GENERAL: This is a well-nourished, well-developed patient, in no apparent distress. CARDIOVASCULAR: Regular rate and rhythm without murmurs, gallops, or rubs. RESPIRATORY: Clear to auscultation. Breath sounds equal bilaterally. No wheezes , rales, or rhonchi. GASTROINTESTINAL: tender on palpation at RUQ, no g/r/r, +BSx4 MUSCULOSKELETAL: Extremities without clubbing, cyanosis, or edema. NEURO: Alert & Oriented x4 to person, place, time, situation. Moves all ext x4 Results Labs CBC & Chem 7: 08/30/18 08:35 08/30/18 08:35 Assessment and Plan Plan This a 48-year-old female patient with a past medical history which includes anxiety, fibromyalgia. Patient initially presented tot [facility] [place] 08/28 with right upper quadrant epigastric pain radiating into her chest. RUQ pain associated with some mild nausea but no vomiting no sweats no shortness of breath no neck jaw back shoulder arm pain. Patient continues to have RUQ pain and presented to [facility] [place] main ER. Choledocholithiasis Cholangiopancreatography MRI 08/29/18 1. Suspected small filling defect at the distal common bile duct recent possibility of a distal stone with mild dilatation the common bile duct and distention of the gallbladder. 2. Nonspecific 1.3 cm hypodensity in the superior aspect of the right lobe of the liver. Based on its appearance on the prior CT examinations is thought the likely represent a hemangioma. Gallbladder Ultrasound 08/29/18 1. Small hemangioma right lobe liver. 2. Distended gallbladder with some gallbladder wall thickening but no sonographic Crane's sign CT abd/pel with IV contrast 08/28/[address] Abdomen and Pelvis with contrast. I don't clearly see the appendix but I don't see any inflammation in the right lower quadrant - WBC (08/28) 7.9 -> 15.4 (08/29), 15.9 (08/30) - Pt had fever overnight, Tmax 100.7 at 12:15AM - Continue Levaquin and Flagyl - total bilirubin 0.6, AST 15, ALT 17, Alk Phos 56 (08/29) - ERCP (08/29) --> sphincterotomy. CBD stone extraction - Case d/w General Surgery, Dr. Adams (08/30). - repeat CBC, CMP, lipase in AM - tylenol/norco prn pain - supportive care - DVT prophylaxis - hopefully d/c to home 08/31 Anxiety Continue home Effexor Fibromyalgia chronic DVT prophylaxis with SCDs Progress Note: Quality VTE Deep Vein Thrombosis/Pulmonary Embolism Present on Admission: No
[2018-08-30] MEDS: Levofloxacin 500 mg Premix Inj 500 MG/100 ML PIGGYBACK IV.SIG SCH (14:59)
--- NOTE | 2018-08-30 16:14 | P.PNGS ---
Subjective Patient reports: feels better, still having pain, tolerating liquids well, flatus (She states that she is feeling overall better, but that she still has pain in the midepigastrium. No nausea or emesis. ) Physical Exam Vital signs: Vital Signs 08/29/18 20:49 08/30/18 00:15 08/30/18 04:56 Temperature 99.8 F H 100.7 F H 100.2 F H Pulse Rate 96 H 95 H 98 H Respiratory Rate 18 18 18 Blood Pressure 99/53 L 112/56 L 110/59 L Pulse Oximetry 98 99 99 08/30/18 08:00 08/30/18 12:00 08/30/18 16:00 Temperature 98.8 F 99 F 98.4 F Pulse Rate 90 94 H 106 H Respiratory Rate 16 16 16 Blood Pressure 122/70 99/53 L 106/63 Pulse Oximetry 99 98 98 Intake & Output 08/29/18 08/30/18 08/30/18 18:59 06:59 18:59 Intake Total 700 / 700 1340 / 1340 100 / 100 Balance 700 / 700 1340 / 1340 100 / 100 Weight 51.7 kg 53.3 kg Intake: IV 300 / 300 1100 / 1100 100 / 100 NS + KCl 20 mEq Inj 1,000 ML @ 1000 / 1000 75 mls/hr IV.CONT .[id number] JOAN Rx#:[id number] Levaquin 500 mg Premix Inj 500 100 / 100 mg In 100 ml @ 100 mls/hr IV. SIG Q24H JOAN Rx#:[id number] Flagyl 500 MG Inj 100 ML @ 100 200 / 200 100 / 100 100 / 100 mls/hr IV.SIG Q8H JOAN Rx#: [id number] Oral 240 / 240 Anesthesia Amount 400 / 400 Other: # Voids 3 Date of Last Bowel Movement 08/28/18 # Bowel Movements 0 Weight On Admission 51.7 kg - Routine Abdominal Exam Present: soft, tenderness (There is tenderness to soft palpation in the midepigastrium; no pain on palpation of the RUQ. She has no guarding or rebound. ) Results - Labs 08/30/18 08:35 08/30/18 08:35 Laboratory Results - last 24 hr 08/29/18 08/29/18 08/30/18 16:04 19:51 08:35 WBC 15.9 H RBC 3.71 L Hgb 12.0 Hct 34.2 L MCV 92.4 MCH 32.5 MCHC 35.2 RDW 12.7 Plt Count 256 MPV 7.5 Neut % (Auto) 84.9 H Lymph % (Auto) 7.9 L [place] % (Auto) 6.8 Eos % (Auto) 0.2 Baso % (Auto) 0.2 Neut # (Auto) 13.5 H Lymph # (Auto) 1.3 [place] # (Auto) 1.1 H Eos # (Auto) 0.0 Baso # (Auto) 0.0 WBC Differential . Differential Comment Auto diff final Sodium Potassium Chloride Carbon Dioxide Anion Gap BUN Creatinine Estimated GFR POC Glucose 95 97 Random Glucose Calcium Total Bilirubin AST ALT Alkaline Phosphatase Total Protein Albumin 08/30/18 08:35 WBC RBC Hgb Hct MCV MCH MCHC RDW Plt Count MPV Neut % (Auto) Lymph % (Auto) [place] % (Auto) Eos % (Auto) Baso % (Auto) Neut # (Auto) Lymph # (Auto) [place] # (Auto) Eos # (Auto) Baso # (Auto) WBC Differential Differential Comment Sodium 139 Potassium 3.8 Chloride 105 Carbon Dioxide 25.1 Anion Gap 9 BUN 4 L Creatinine 0.78 Estimated GFR 80 L POC Glucose Random Glucose 102 Calcium 8.2 L Total Bilirubin 0.6 AST 17 ALT 21 Alkaline Phosphatase 74 Total Protein 7.0 Albumin 2.7 L - Imaging Imaging: ITS Impressions Cholangiopancreatography MRI 08/29/18 00:00 CONCLUSION: 1. Suspected small filling defect at the distal common bile duct recent possibility of a distal stone with mild dilatation the common bile duct and distention of the gallbladder. 2. Nonspecific 1.3 cm hypodensity in the superior aspect of the right lobe of the liver. Based on its appearance on the prior CT examinations is thought the likely represent a hemangioma. GI Procedure 08/29/18 00:00 CONCLUSION: No definite filling defect identified within the extrahepatic biliary system after balloon was passed through the system. Gallbladder Ultrasound 08/29/18 05:06 CONCLUSION: 1. Small hemangioma right lobe liver. 2. Distended gallbladder with some gallbladder wall thickening but no sonographic Crane's sign Assessment and Plan - Plan I believe she has mild post-ERCP pancreatitis based on her low grade fever and physical exam; lipase was not ordered for today. She should be able to be discharged tomorrow if she continues to improve and should not require antibiotics as an outpatient. I will plan to see her in two weeks in my office to schedule elective cholecystectomy in 4 weeks or so.
[2018-08-31 05:44] LABS: Baso % (Auto) 0.1 % (0.0-2.0); Eos # (Auto) 0.2 th/mm3 (0.0-0.4); Eos % (Auto) 1.1 % (0.0-4.0); Hematocrit 32.2 % (35.0-46.0); Hemoglobin 11.2 gm/dL (11.6-15.3); Lymph # (Auto) 1.3 th/mm3 (1.0-4.8); Lymph % (Auto) 9.1 % (9.0-44.0); Mean Corpuscular HGB Conc 34.7 % (32.0-36.0); Mean Corpuscular Hemoglobin 31.9 pg (27.0-34.0); Mean Corpuscular Volume 91.9 fL (80.0-100.0); Mean Platelet Volume 7.3 fL (7.0-11.0); Mono # (Auto) 1.5 th/mm3 (0.0-0.9); Mono % (Auto) 10.4 % (0.0-8.0); Neut # (Auto) 11.2 th/mm3 (1.8-7.7); Neut % (Auto) 79.3 % (16.0-70.0); Platelet Count 282 th/mm3 (150-450); Red Blood Count 3.51 mil/mm3 (4.00-5.30); Red Cell Distribution Width 12.6 % (11.6-17.2); White Blood Count 14.1 th/mm3 (4.0-11.0)
[2018-08-31 06:09] LABS: Alanine Aminotransferase 25 U/L (10-53); Albumin 2.6 g/dL (3.4-5.0); Anion Gap 8 meq/L (5-15); Aspartate Aminotransferase 19 U/L (15-37); Blood Urea Nitrogen 7 mg/dL (7-18); Calcium 8.3 mg/dL (8.5-10.1); Carbon Dioxide 25.9 meq/L (21.0-32.0); Chloride 107 meq/L (98-107); Glomerular Filtration Rate 81 mL/min (>89); Glucose,Random 104 mg/dL (74-106); Potassium 3.7 meq/L (3.5-5.1); Sodium 141 meq/L (136-145)
[2018-08-31 06:12] LABS: Alkaline Phosphatase 75 U/L (45-117); Total Protein 6.8 g/dL (6.4-8.2)
[2018-08-31 08:49] VITALS: BP 97/55; PULSE 89; RESP 16; TEMP 97.7; O2SAT 98
[2018-08-31] MEDS: Venlafaxine XR 75 MG Capsule PO SCH (10:51)
--- NOTE | 2018-08-31 12:02 | P.PNIM ---
Subjective Interval history: abdomen pain continues to improve. darleen food no fever past 24hrs. Physical Exam Vital signs: Last Vital Signs Temp 97.7 F 08/31/18 08:00 Pulse 89 08/31/18 08:00 Resp 16 08/31/18 08:00 BP 97/55 L 08/31/18 08:00 Pulse Ox 98 08/31/18 08:00 Narrative: nad. comfortable. Results Labs CBC & Chem 7: 08/31/18 05:32 08/31/18 05:32 Assessment and Plan Plan This a 48-year-old female patient with a past medical history which includes anxiety, fibromyalgia. Patient initially presented tot [facility] [place] 08/28 with right upper quadrant epigastric pain radiating into her chest. RUQ pain associated with some mild nausea but no vomiting no sweats no shortness of breath no neck jaw back shoulder arm pain. Patient continues to have RUQ pain and presented to [facility] [place] main ER. Choledocholithiasis Cholangiopancreatography MRI 08/29/18 1. Suspected small filling defect at the distal common bile duct recent possibility of a distal stone with mild dilatation the common bile duct and distention of the gallbladder. 2. Nonspecific 1.3 cm hypodensity in the superior aspect of the right lobe of the liver. Based on its appearance on the prior CT examinations is thought the likely represent a hemangioma. Gallbladder Ultrasound 08/29/18 1. Small hemangioma right lobe liver. 2. Distended gallbladder with some gallbladder wall thickening but no sonographic Crane's sign CT abd/pel with IV contrast 08/28/[address] Abdomen and Pelvis with contrast. I don't clearly see the appendix but I don't see any inflammation in the right lower quadrant - ERCP (08/29) --> sphincterotomy. CBD stone extraction - Case d/w General Surgery, Dr. Adams pt seen and at bedside eager for dc. tolerating diet. pain minimal and improving. f/u gen surg 2 weeks and lap paz 4weeks. Anxiety Continue home Effexor Fibromyalgia chronic DVT prophylaxis with SCDs Progress Note: Quality VTE Deep Vein Thrombosis/Pulmonary Embolism Present on Admission: No
== END 2018-08-31 12:41 | disposition home or self-care (01) ==
LOC: NEPE 04:40 → NEDA 06:43 → INTOOBSV 06:43 → NEDA 07:49 → N06 07:50 → HIMC 16:09 → N06 16:19
PROVIDERS: ADMIT Hospitalist; ATTEND Hospitalist
CPT/HCPCS: 74181; 74330; 76377; 76705; 80053; 82948; 82962; 83690; 83735; 84702; 85025; 90761; 90775; 96361; 96365; 96366; 96368; 96375; 96376; 99285; C1769; G0378; J1170; J1956; J2060; J2270; J2405; J3010; J3480; J7030